=== PATIENT | male | born 1965 | race Caucasian/White ===

== ENCOUNTER → 2016-07-28 | Day surgery (SDC) | payer OTHER ==
[2016-07-28 07:27] LABS: HCT 44.3 % (42.0-52.0); MCH 31.1 pg (25.0-31.0); MCHC 33.9 g/dL (32.0-36.0); MCV 91.7 fL (78.0-100.0); MPV 9.3 fL (6.0-9.5); RBC 4.83 M/uL (4.70-6.00); RDW 12.8 % (11.5-14.0); WBC 7.9 K/uL (4.0-10.5)
[2016-07-28 07:53] LABS: ALBUMIN 4.5 g/dL (3.5-5.0); BILIRUBIN - TOTAL 0.8 mg/dL (0.1-1.0); CREATININE 0.7 mg/dL (0.7-1.2); GLOBULIN (CALCULATION) 2.8 g/dL (2.2-4.2); POTASSIUM 4.1 mmol/L (3.5-5.1); TOTAL PROTEIN 7.3 g/dL (6.4-8.3)
== END | disposition home or self-care (01) ==
LOC: FAS 07:35
PROVIDERS: Surgery
DX: Z12.11 Encounter for screening for malignant neoplasm of colon (principal); I10 Essential (primary) hypertension; E78.00 Pure hypercholesterolemia, unspecified; F17.210 Nicotine dependence, cigarettes, uncomplicated; Z98.890 Other specified postprocedural states; Z82.49 Family history of ischemic heart disease and other diseases of the circulatory system; Z79.899 Other long term (current) drug therapy
CPT/HCPCS: 36415; 80053; J2704